=== PATIENT | male | born 1960 | race Caucasian/White ===

== ENCOUNTER 2016-04-21 16:01 | Emergency (ER) | payer OTHER ==
[~2016-04-21] VITALS: Wt 100.0 kg
[2016-04-21] MEDS ORDERED: TRIMETHOPRIM/SULFAMETHOX (DS) TAB PO ONE (17:30)
[2016-04-21] MEDS ORDERED: CEFTRIAXONE 1 GM INJ IM ONE (17:30)
[2016-04-21] MEDS ORDERED: DIPHTH/TET/ACEL PERTUSS (ADULT) 0.5 ML VIAL IM* ONE (17:30)
[2016-04-21] MEDS ORDERED: LIDOCAINE 1% (MDV) 20 ML INJ SC ONE (17:30)
--- NOTE | 2016-04-21 18:09 | RADRPT ---
PROCEDURE: Right index finger CLINICAL INDICATION: 56-year-old male with trauma to index finger. TECHNIQUE: AP and lateral views of the right index finger were obtained. COMPARISON: No prior studies are available for comparison. FINDINGS: There is a laceration with subcutaneous emphysema suspected along the thenar side of the distal port ion of the right index finger. The bony elements and joint spaces are normal. IMPRESSION: 1. No evidence of acute fracture involving the right index finger. 2. Soft tissue swelling with contour change in the skin suspicious for a laceration involving the d istal right index finger. RPTAT:AAJJ Physician Gomez Date Time Electronically viewed and signed by Jovanny Vasquez Physician on 04/21/2016 18:08 RADHA/
[2016-04-21] MEDS ORDERED: IBUP-1542 PO (18:12)
[2016-04-21] MEDS ORDERED: CEPH500C PO (18:12)
[2016-04-21] MEDS ORDERED: BACTDS PO (18:12)
--- NOTE | 2016-04-21 18:16 | ERD ---
ER Documentation Chief Complaint Date/Time DATE: 04/21/16 TIME: 18:14 Chief Complaint RIGHT FINGER WOUND ABRASION AND SWELLING FOR THE PAST WEEK HPI This 48-year-old male sustained an abrasion on his right index after get caught in his wheelchair finger a week ago. He complains of some redness around the wound. He denies restricted range of motion weakness. He denies fevers, additional symptoms were ROS All systems reviewed and are negative except as per history of present illness. Medications Home Meds Active Scripts Ibuprofen* (Motrin*) 600 Mg Tab, 600 MG PO Q6H Y for PAIN, #14 TAB Prov:NENA TOVAR MD 04/21/16 Cephalexin* (Cephalexin*) 500 Mg Capsule, 500 MG PO QID for 10 Days, #28 CAP Prov:NENA TOVAR MD 04/21/16 Sulfamethoxazole-Trimethoprim* (Bactrim* DS) 800-160 Mg Tab, 1 TAB PO BID, #20 TAB Prov:NENA TOVAR MD 04/21/16 Allergies Allergies: Coded Allergies: No Known Allergy (Unverified , 06/22/15) PMhx/Soc History of Surgery: Yes (NECK SURGERY) Anesthesia Reaction: No Hx Neurological Disorder: No Hx Respiratory Disorders: No Hx Cardiac Disorders: No Hx Psychiatric Problems: No Hx Miscellaneous Medical Probl: No Hx Alcohol Use: No Hx Substance Use: Yes (FORMER) Hx Tobacco Use: Yes (1-2 CIGARS AT TIMES) Smoking Status: Current every day smoker Physical Exam Vitals Vital Signs Date Time Temp Pulse Resp B/P Pulse Ox O2 Delivery O2 Flow Rate FiO2 04/21/16 16:12 98.9 100 22 143/85 98 Physical Exam Alert, [id number] per const: [] Head: Atraumatic Eyes: Normal Conjunctiva ENT: Normal External Ears, Nose and Mouth. Neck: Full range of motion..~ No meningismus. Resp: Clear to auscultation bilaterally Cardio: Regular rate and rhythm, no murmurs Abd: Soft, non tender, non distended. Normal bowel sounds Skin: No petechiae or rashes Back: No midline or flank tenderness Ext: No cyanosis, or edema. There are several macerated abrasions on the right index finger with some surrounding redness. There is no appreciable effusion, deformities, restricted range of motion weakness, proximal tendon tenderness. Neur: Awake and alert Psych: Normal Mood and Affect Results 24 hrs Current Medications Medications (Trade) Dose Ordered Sig/Zayra Route PRN Reason Start Time Stop Time Status Last Admin Dose Admin Ceftriaxone Sodium (Rocephin) 1 gm ONCE ONCE IM 04/21/16 17:30 04/21/16 17:31 DC 04/21/16 17:24 Lidocaine (Xylocaine 1% (Mdv) 20 ml) 20 ml ONCE ONCE SC 04/21/16 17:30 04/21/16 17:31 DC 04/21/16 17:24 Trimethoprim/ Sulfamethoxazole (Bactrim (Ds)) 1 tab ONCE ONCE PO 04/21/16 17:30 04/21/16 17:31 DC 04/21/16 17:24 Diphtheria/ Tetanus/Acell Pertussis (Adacel) 0.5 ml ONCE ONCE IM* 04/21/16 17:30 04/21/16 17:31 DC 04/21/16 17:26 Procedures/MDM X-ray right in the finger 2V Interpreted by me: Bones: No fracture Joints: No dislocation Foreign body: None. Impression-normal right index finger Patient was given a Tdap tetanus booster. Patient was given Rocephin 1 g IM and Bactrim double strength by mouth. Patient appears to have an infected abrasion of his right index finger without current signs to suggest ostium myelitis, tenosynovitis, fracture, dislocation. There is no evidence of deficits. He will be treated with Bactrim and Keflex instructions for wound check in 2-3 days with his primary care doctor return sooner for worsening redness, fevers, new or worsening symptoms. Wound was dressed prior to discharge Departure Diagnosis: Primary Impression: Cellulitis Site of cellulitis: extremity Site of cellulitis of extremity: finger Laterality: right Qualified Code: L03.011 - Cellulitis of finger of right hand Additional Impression: Laceration Condition: Stable Patient Instructions: Laceration, Old (Not Sutured) Additional Instructions: Recommend recheck in 2-3 days for increasing redness, fevers, new or worsening symptoms. NENA TOVAR MD Apr 21, 2016 18:16
== END 2016-04-21 18:23 | disposition home or self-care (01) ==
LOC: FTE 16:01
DX: L03.011 Cellulitis of right finger (principal); S61.210A Laceration without foreign body of right index finger without damage to nail, initial encounter; F17.210 Nicotine dependence, cigarettes, uncomplicated; W23.1XXA Caught, crushed, jammed, or pinched between stationary objects, initial encounter; Y92.9 Unspecified place or not applicable; Z23 Encounter for immunization
CPT/HCPCS: 73140; 90471; 90715; 96372; J0696; Z7502; Z7610